=== PATIENT | female | born 2000 | race Hispanic/Latino ===

== ENCOUNTER 2022-08-28 18:40 | Emergency (ER) | payer BC, MEDICAID ==
[~2022-08-28 18:40] MED LIST: DOCU-116 PO; IBUP-2077 PO; PREN-196 PO
[2022-08-28] MEDS ORDERED: CYCLOBENZAPRINE HCL 10 MG TABLET PO ONE (20:00)
[2022-08-28] MEDS ORDERED: KETOROLAC 15MG/ML VIAL (15MG/ML) IV ONE (20:00)
[2022-08-28 20:14] LABS: APPEARANCE,URINE CLOUDY (CLEAR); BILIRUBIN,URINE NEGATIVE (NEGATIVE); COLOR,URINE LIGHT-YELLOW (YELLOW); GLUCOSE, URINE (UA) NEGATIVE (NEGATIVE); KETONES,URINE NEGATIVE (NEGATIVE); LEUKOCYTE ESTERASE ,URINE 25 Leu/uL (NEGATIVE); NITRATE,URINE NEGATIVE (NEGATIVE); PH,URINE 6.5 (5.0-8.0); PROTEIN,URINE 20 mg/dL (NEGATIVE); UROBILINOGEN,URINE 0.2 mg/dL (0.2-1.0)
[2022-08-28 20:32] LABS: BACTERIA,URINE RARE /HPF (None Seen); MUCUS,URINE MOD LPF (None Seen); OTHER CASTS, URINE 1 /LPF (None Seen); SQUAMOUS EPITHELIAL CELL,UR MOD /HPF (0-2)
[2022-08-28] MEDS ORDERED: CYCL5TAB PO (20:48)
[2022-08-28] MEDS ORDERED: KETO10TA2 PO (20:48)
[2022-08-28] MEDS ORDERED: LIDO1ADH82 TP (20:48)
[2022-08-28 21:08] VITALS: BP 119/78
== END 2022-08-28 21:15 | disposition home or self-care (01) ==
LOC: EDH 18:40
DX: M62.838 Other muscle spasm (principal); V89.2XXA Person injured in unspecified motor-vehicle accident, traffic, initial encounter; Y93.I9 Activity, other involving external motion; Y92.410 Unspecified street and highway as the place of occurrence of the external cause; Y99.8 Other external cause status
CPT/HCPCS: 99284; 96374; 81001; 81025; 73090; J1885